=== PATIENT | female | born 1930 | race Caucasian/White ===

== ENCOUNTER 2017-05-13 17:41 | Inpatient (IN) | payer MEDICARE, OTHER ==
[~2017-05-13] VITALS: Ht 157.5 cm; Wt 91.6 kg
--- NOTE | 2017-05-13 19:00 | NUR ---
PATIENT IS AWAKE AND ALERT. SECURITY AT BEDSIDE FOR OBSERVATION
--- NOTE | 2017-05-13 19:20 | NUR ---
report received from day shift nurse Staci RN. pt aaox3, able to speak to in complete and clear sentences in own language - urdu. pt in no acute distress. stated she is a diabetic and felt hypoglycemic. ER MD notified of pt's concern and glucose POCT done, reading of 68. orange juice and apple sauce provided to pt. respirations are even and unlabored, with no signs of hypoglycemia.
[2017-05-13] MEDS ORDERED: FERR220S13 PO (19:45)
[2017-05-13] MEDS ORDERED: OLAN5TAB3 PO (19:45)
[2017-05-13] MEDS ORDERED: BISA10SU12 RC (19:45)
[2017-05-13] MEDS ORDERED: ASPI81TA31 PO (19:45)
[2017-05-13] MEDS ORDERED: MAGN400O6 PO (19:45)
[2017-05-13] MEDS ORDERED: INSU100V7 SQ (19:45)
[2017-05-13] MEDS ORDERED: GLUC1KIT IJ (19:45)
[2017-05-13] MEDS ORDERED: SITA50TA PO (19:45)
[2017-05-13] MEDS ORDERED: ASCO-375 PO (19:45)
[2017-05-13] MEDS ORDERED: HYDR25SU33 RC (19:45)
[2017-05-13] MEDS ORDERED: POLY17PO4 PO (19:45)
[2017-05-13] MEDS ORDERED: ACET325T53 PO (19:45)
[2017-05-13] MEDS ORDERED: METF500T6 PO (19:45)
[2017-05-13] MEDS ORDERED: BLOO-140 IN (19:45)
[2017-05-13] MEDS ORDERED: MELA3TAB PO (19:45)
[2017-05-13] MEDS ORDERED: ACET325C PO (19:45)
[2017-05-13] MEDS ORDERED: HYDR-3326 PO (19:45)
[2017-05-13] MEDS ORDERED: GABA-532 PO (19:45)
[2017-05-13] MEDS ORDERED: METO5TAB2 PO (19:45)
[2017-05-13] MEDS ORDERED: MEMA10TA PO (19:45)
[2017-05-13] MEDS ORDERED: FOLIC ACID PO (19:45)
[2017-05-13 19:59] LABS: CARBON DIOXIDE 32 mmol/L (21-32); CHLORIDE 104 mmol/L (98-107); CREATININE 0.8 mg/dL (0.6-1.3); ETHANOL < 3 MG/DL (0-0); GLUCOSE 72 mg/dL (74-106); POTASSIUM 3.9 mmol/L (3.5-5.1); UREA NITROGEN, BLOOD 12 mg/dL (7-18)
[2017-05-13 20:03] LABS: BASOPHILS % (AUTO) 0.2 % (0.0-2.0); EOSINOPHILS # (AUTO) 0.2 K/uL (0.0-0.7); EOSINOPHILS % (AUTO) 2.9 % (0.0-7.0); HEMATOCRIT 42.7 % (31.2-41.9); HEMOGLOBIN 13.9 g/dL (10.9-14.3); LYMPHOCYTES # (AUTO) 1.7 K/uL (20.0-40.0); LYMPHOCYTES % (AUTO) 29.8 % (20.5-51.5); MEAN CORPUSCULAR HEMOGLOBIN 27.7 uug (24.7-32.8); MEAN CORPUSCULAR HGB CONC 33 g/dL (32.3-35.6); MONOCYTES # (AUTO) 0.4 K/uL (2.0-10.0); MONOCYTES % (AUTO) 6.9 % (0.0-11.0); NEUTROPHILS # (AUTO) 3.5 K/uL (1.8-8.9); NEUTROPHILS % (AUTO) 60.2 % (38.5-71.5); PLATELET COUNT (AUTO) 185 K/uL (179-408); RED BLOOD CELL COUNT(AUTO) 5.02 MIL/uL (3.63-4.92); WHITE BLOOD COUNT (AUTO) 5.9 K/uL (3.8-11.8)
[2017-05-13 20:04] LABS: ALANINE AMINOTRANSFERASE 12 U/L (14-59); ALKALINE PHOSPHATASE 94 U/L (50-136); ASPARTATE AMINOTRANSFERASE 15 U/L (15-37); BILIRUBIN,DIRECT 0.1 mg/dL (0.0-0.2); BILIRUBIN,TOTAL 0.4 mg/dL (0.2-1.0); TOTAL PROTEIN, SERUM 6.5 g/dL (6.4-8.2)
[2017-05-13 20:12] LABS: THYROID STIMULATING HORMONE 3.143 mIU/mL (0.358-3.740)
--- NOTE | 2017-05-13 21:55 | NUR ---
pt taken down to radiology for CT via stretcher. in no acute distress
--- NOTE | 2017-05-13 22:10 | NUR ---
pt returned from CT via stretcher in no acute distress
--- NOTE | 2017-05-13 23:36 | NUR ---
Elijah, Exchange Architect non clinical advisor paged for psych eval .
--- NOTE | 2017-05-14 00:20 | NUR ---
U called for bed, 138A, report given to Pallavi CROWE
[2017-05-14] MEDS ORDERED: ACETAMINOPHEN 325 MG TABLET PO PRN ×3 (01:00→13:45)
[2017-05-14] MEDS ORDERED: MAG HYDROX/AL HYDROX/SIMETH 30 ML LIQUID UDC PO PRN (01:00)
[2017-05-14] MEDS ORDERED: TEMAZEPAM 7.5 MG CAPSULE PO PRN (01:00)
--- NOTE | 2017-05-14 02:00 | NUR ---
AT APPROX O105, ADMITTED 86 YEAR OLD FEMALE FROM [facility] TO [facility] UNDER THE CARE OF DR. PRECIADO. PT IS ON A 5150 HOLD FOR GD. HOLD STARTED ON 05/14/17 AT 0015 AND WILL END ON 05/17/17 AT 0015. PER HOLD, PATIENT GRABBED A NURSE, AT HER SNF, AND SCRATCHED HER BECAUSE SHE DID NOT UNDERSTAND THAT PT WAS FEELING ANXIOUS. PT WAS MEDICALLY CLEARED AT [facility]. AT TIME OF ADMISSION PT WAS NOTED A/O X 2. ABLE TO VERBALIZED THE REASON FOR HER [facility] TO [facility]. PT WAS UNABLE TO SIGN ADMISSION PAPER. SHE STATED THAT SHE DOES NOT KNOW HOW TO READ OR WRITE. SHE IS POLISH SPEAKER ONLY. SKIN NOTED WARM DRY AND INTACT EXCEPT FOR FEW RED SPOTS IN RIGHT HAND POSTERIOR ASPECT. PT STATED THAT SHE IS UNABLE TO WALK. PT IS EDENTULOUS AND SHE DID NOT BRING HER DENTURES. PUREED DIET WAS ORDERED. URINE WAS COLLECTED AND SENT TO LAB FOR URINALYSIS AND C&S. WILL CONTINUE TO MONITOR CLOSELY.
[2017-05-14 02:28] LABS: *BILIRUBIN,URIN NEGATIVE (NEGATIVE); *BLOOD, URINE Trace-intact (NEGATIVE); *CLARITY,URINE SLIGHTLY CLOUDY (CLEAR); *COLOR,URINE LIGHT YELLOW (YELLOW); *KETONES,URINE NEGATIVE (NEGATIVE); *PROTEIN,URINE NEGATIVE (NEGATIVE); *UROBILINOGEN,URINE 0.2 E.U./dl (NORMAL); LEUKOCYTE ESTERASE ,URINE 1+ (NEGATIVE); NITRITE, URINE POSITIVE (NEGATIVE); UGLUCOSE NEGATIVE (NEGATIVE)
[2017-05-14 02:36] LABS: BACTERIA,URINE MANY /HPF (NONE SEEN); SQUAMOUS EPITHELIAL CELL,UR MANY /HPF (NONE SEEN); WBC,URINE 50-80 /HPF (0-3)
[2017-05-14 02:41] LABS: *AMPHETAMINE, URINE NEGATIVE (NEGATIVE); *BARBITURATE, URINE NEGATIVE (NEGATIVE); *CANNABINOID, URINE NEGATIVE (NEGATIVE); *COCCAINE, URINE NEGATIVE (NEGATIVE); *OPIATE, URINE NEGATIVE (NEGATIVE); *PHENCYCLIDINE SCREEN,URINE NEGATIVE (NEGATIVE)
[2017-05-14 05:04] VITALS: BP 129/52
[2017-05-14 08:00] VITALS: BP 115/65
[2017-05-14] MEDS ORDERED: FERROUS SULFATE PO SCH (13:30)
[2017-05-14] MEDS ORDERED: MAGNESIUM HYDROXIDE 30 ML LIQUID UDC PO SCH (13:30)
[2017-05-14] MEDS ORDERED: BISACODYL 10 MG SUPP.RECT RC PRN (13:30)
[2017-05-14] MEDS ORDERED: HYDROCORTISONE RECTAL SUPP 25 MG EACH RC PRN (13:30)
[2017-05-14] MEDS ORDERED: Medication Not On Formulary EA (Acetaminophen 650 MG) PO PRN (13:30)
[2017-05-14] MEDS: SITAGLIPTIN PHOSPHATE 50 MG TABLET PO SCH (13:30)
[2017-05-14] MEDS ORDERED: FOLIC ACID PO SCH (13:30)
[2017-05-14] MEDS ORDERED: HYDROCODONE/APAP 5-325MG TABLET PO PRN (13:30)
[2017-05-14] MEDS: METOCLOPRAMIDE HCL 5 MG TABLET PO SCH ×2 (13:30→17:55)
[2017-05-14] MEDS: GABAPENTIN 100 MG CAPSULE PO SCH ×2 (14:39→17:55)
[2017-05-14] MEDS: ASPIRIN 81 MG TAB.CHEW PO SCH (14:39)
[2017-05-14] MEDS: ASCORBIC ACID 500 MG TABLET PO SCH ×2 (14:39→17:55)
[2017-05-14] MEDS: METFORMIN HCL 500 MG TABLET PO SCH ×2 (14:56→17:55)
[2017-05-14] MEDS: MIRALAX 17 GM POWD.PACK PO SCH ×2 (14:56→17:00)
[2017-05-14 16:00] VITALS: BP 107/42
[2017-05-14] MEDS ORDERED: DEXTROSE 50% 50 ML DISP.SYRIN IV PRN (16:15)
[2017-05-14] MEDS: BLOOD SUGAR DIAGNOSTIC 1 EACH STRIP VI SCH ×2 (16:56→21:25)
[2017-05-14] MEDS: FERROUS SULFATE 300 MG/5 ML LIQUID UDC PO SCH (17:55)
[2017-05-14] MEDS: INSULIN REGULAR, HUMAN 300 UNIT/3 ML VIAL SQ PRN ×2 (18:00→21:35)
[2017-05-14 19:57] VITALS: BP 115/79
[2017-05-14] MEDS ORDERED: INSULIN GLARGINE,HUM 300 UNITS/3 ML CARTRIDGE SQ SCH (21:00)
[2017-05-14] MEDS ORDERED: OLANZAPINE ZYDIS 5 MG TAB.RAPDIS PO SCH (21:00)
[2017-05-14] MEDS: DIVALPROEX SPRINKLE 125 MG CAP.SPRINK PO SCH (21:27)
[2017-05-15] MEDS: BLOOD SUGAR DIAGNOSTIC 1 EACH STRIP VI SCH ×5 (06:30→20:31)
[2017-05-15] MEDS: METOCLOPRAMIDE HCL 5 MG TABLET PO SCH ×4 (06:35→17:22)
--- NOTE | 2017-05-15 07:04 | NUR ---
Patient blood sugar at 0630 is 37. Alert and grabbing water. Refused to let go. Patient given orange juice 2 cups. After 15 minutes blood sugar is 89. Cooperative with care. AM care completed and resting comfortably.
[2017-05-15 07:30] VITALS: BP 111/58
[2017-05-15] MEDS: FERROUS SULFATE 300 MG/5 ML LIQUID UDC PO SCH ×2 (09:27→17:23)
[2017-05-15] MEDS: ASPIRIN 81 MG TAB.CHEW PO SCH (09:27)
[2017-05-15] MEDS: FOLIC ACID 1 MG TABLET PO SCH (09:27)
[2017-05-15] MEDS: SITAGLIPTIN PHOSPHATE 50 MG TABLET PO SCH (09:28)
[2017-05-15] MEDS: DIVALPROEX SPRINKLE 125 MG CAP.SPRINK PO SCH ×2 (09:28→20:02)
[2017-05-15] MEDS: MIRALAX 17 GM POWD.PACK PO SCH ×2 (09:28→17:23)
[2017-05-15] MEDS: GABAPENTIN 100 MG CAPSULE PO SCH ×2 (09:28→17:22)
[2017-05-15] MEDS: ASCORBIC ACID 500 MG TABLET PO SCH ×2 (09:28→17:22)
--- NOTE | 2017-05-15 13:52 | NUR ---
Firearms Report: BLAINE completed and submitted [facility] Firearms Report on 05/15/17.
[2017-05-15] MEDS: CEPHALEXIN MONOHYDRATE 500 MG CAPSULE PO SCH ×2 (14:00→21:30)
[2017-05-15 15:00] VITALS: BP 111/37
[2017-05-15] MEDS: METFORMIN HCL 500 MG TABLET PO SCH (17:22)
[2017-05-15] MEDS: INSULIN REGULAR, HUMAN 300 UNIT/3 ML VIAL SQ PRN ×2 (17:26→20:41)
--- NOTE | 2017-05-15 18:14 | NUR ---
Gps/[employer]- Noted patient more responsive to male staff. refusing am. routine meds. was was reoffered couple of times, needed prompting, was irritable with female staff when administering her mediciatrions. Fluids offered and encouraged. Reviewed safety.
[2017-05-15 20:01] VITALS: BP 100/62
[2017-05-15] MEDS: OLANZAPINE ZYDIS 5 MG TAB.RAPDIS PO SCH (20:02)
[2017-05-16] MEDS: METOCLOPRAMIDE HCL 5 MG TABLET PO SCH ×4 (00:01→16:57)
[2017-05-16] MEDS: CEPHALEXIN MONOHYDRATE 500 MG CAPSULE PO SCH ×3 (05:31→21:02)
[2017-05-16] MEDS: BLOOD SUGAR DIAGNOSTIC 1 EACH STRIP VI SCH ×4 (06:16→20:01)
--- NOTE | 2017-05-16 06:24 | NUR ---
GPS: REMAIN UNCOOPERATIVE WITH CARE. PATIENT ATTEMPTED TO HIT STAFF WHILE PROVIDING ADL'S. COMPLIANT WITH WITH MEDICATION. BLOOD SUGAR 79 MG/DL THIS MORNING. SLEPT 7 HRS THROUGH THE NIGHT.
[2017-05-16 07:30] VITALS: BP 100/50
[2017-05-16] MEDS: ASCORBIC ACID 500 MG TABLET PO SCH ×2 (08:23→16:57)
[2017-05-16] MEDS: DIVALPROEX SPRINKLE 125 MG CAP.SPRINK PO SCH ×2 (08:23→20:01)
[2017-05-16] MEDS: METFORMIN HCL 500 MG TABLET PO SCH ×2 (08:23→16:57)
[2017-05-16] MEDS: FOLIC ACID 1 MG TABLET PO SCH (08:23)
[2017-05-16] MEDS: ASPIRIN 81 MG TAB.CHEW PO SCH (08:24)
[2017-05-16] MEDS: GABAPENTIN 100 MG CAPSULE PO SCH ×2 (08:24→16:57)
[2017-05-16] MEDS: MIRALAX 17 GM POWD.PACK PO SCH ×2 (08:24→16:57)
[2017-05-16] MEDS: SITAGLIPTIN PHOSPHATE 50 MG TABLET PO SCH (08:24)
[2017-05-16] MEDS: FERROUS SULFATE 300 MG/5 ML LIQUID UDC PO SCH ×2 (08:25→16:57)
--- NOTE | 2017-05-16 09:02 | NUR ---
Initial Discharge Instructions: Pt currently lives at [facility] [[address], [place] [address]; [phone]]. Spoke with pt's son, Eddie ([phone]) who stated the family would like the pt to return there when ready for discharge. Spoke with Silvina at the facility who stated the patient may return there when ready. SW will continue to collaborate with the pt, family, and MD regarding appropriate discharge plans. SW will form a safe and proper discharge.
[2017-05-16] MEDS: INSULIN GLARGINE,HUM 300 UNITS/3 ML CARTRIDGE SQ SCH (09:19)
[2017-05-16] MEDS: INSULIN REGULAR, HUMAN 300 UNIT/3 ML VIAL SQ PRN ×3 (11:37→20:03)
[2017-05-16 15:00] VITALS: BP 117/57
[2017-05-16] MEDS: OLANZAPINE ZYDIS 5 MG TAB.RAPDIS PO SCH (20:01)
[2017-05-16 20:15] VITALS: BP 114/56
[2017-05-16] MEDS: MAGNESIUM HYDROXIDE 30 ML LIQUID UDC PO PRN (22:45)
[2017-05-17] MEDS: METOCLOPRAMIDE HCL 5 MG TABLET PO SCH ×5 (01:25→23:00)
[2017-05-17] MEDS: LORAZEPAM 0.5 MG TABLET PO PRN (01:25)
--- NOTE | 2017-05-17 01:26 | NUR ---
scheduled Reglan at 0000 given late due to pT sleeping. pT awoke at 0120 anxious and nauseous, Ativan 0.5 and Reglan administered at that time.
[2017-05-17] MEDS: CEPHALEXIN MONOHYDRATE 500 MG CAPSULE PO SCH ×3 (05:51→21:24)
[2017-05-17] MEDS: BLOOD SUGAR DIAGNOSTIC 1 EACH STRIP VI SCH ×4 (06:35→20:01)
[2017-05-17 07:30] VITALS: BP 121/50
[2017-05-17] MEDS: FERROUS SULFATE 300 MG/5 ML LIQUID UDC PO SCH ×2 (08:10→16:54)
[2017-05-17] MEDS: SITAGLIPTIN PHOSPHATE 50 MG TABLET PO SCH (08:10)
[2017-05-17] MEDS: DIVALPROEX SPRINKLE 125 MG CAP.SPRINK PO SCH ×2 (08:10→20:03)
[2017-05-17] MEDS: FOLIC ACID 1 MG TABLET PO SCH (08:10)
[2017-05-17] MEDS: ASPIRIN 81 MG TAB.CHEW PO SCH (08:10)
[2017-05-17] MEDS: METFORMIN HCL 500 MG TABLET PO SCH ×2 (08:10→16:54)
[2017-05-17] MEDS: ASCORBIC ACID 500 MG TABLET PO SCH ×2 (08:10→16:54)
[2017-05-17] MEDS: GABAPENTIN 100 MG CAPSULE PO SCH ×2 (08:10→16:54)
[2017-05-17] MEDS: MIRALAX 17 GM POWD.PACK PO SCH ×2 (08:14→17:00)
[2017-05-17] MEDS: INSULIN GLARGINE,HUM 300 UNITS/3 ML CARTRIDGE SQ SCH (08:17)
--- NOTE | 2017-05-17 08:41 | NUR ---
Gps/Car Rental Service Attendant- Fed self ind. after set up. Compliant with her routine am.medications, min.prompting.Had been redirectable this am, followed simple command.
[2017-05-17] MEDS: INSULIN REGULAR, HUMAN 300 UNIT/3 ML VIAL SQ PRN ×3 (12:01→20:02)
[2017-05-17] MEDS ORDERED: BISACODYL 10 MG SUPP.RECT RC PRN (12:30)
--- NOTE | 2017-05-17 12:45 | NUR ---
Gps/Rough Planer Tender- Dr Vera was in to see patient, informed patient has been on miralax for few days, but still has no BM, bowel sounds active/present per MD, orders received to give lactulose unit dose till patient have BM, pt. was informed. Adequate fluid intake. Patient obese large abdomen .
[2017-05-17] MEDS: LACTULOSE 20 G/30 ML LIQUID UDC PO SCH ×6 (12:59→22:56)
[2017-05-17 15:11] VITALS: BP 109/49
--- NOTE | 2017-05-17 17:17 | NUR ---
Gps/Stabber-Family in to visit, adequate informations provided as requested re progress in [place]. Patient had no bowel movement, continue to monitor. Adequate fluid intake.
[2017-05-17] MEDS: OLANZAPINE ZYDIS 5 MG TAB.RAPDIS PO SCH (20:04)
[2017-05-17 20:33] VITALS: BP 99/53
--- NOTE | 2017-05-17 23:03 | NUR ---
Pt HAD 2 LARGE, LOOSE BMs, LACTULOSE EFFECTIVE. SKIN CARE PROVIDED.
[2017-05-18] MEDS: LACTULOSE 20 G/30 ML LIQUID UDC PO SCH (00:49)
[2017-05-18] MEDS: METOCLOPRAMIDE HCL 5 MG TABLET PO SCH ×3 (06:08→22:47)
[2017-05-18] MEDS: CEPHALEXIN MONOHYDRATE 500 MG CAPSULE PO SCH ×3 (06:09→22:46)
[2017-05-18] MEDS: BLOOD SUGAR DIAGNOSTIC 1 EACH STRIP VI SCH ×4 (07:07→21:20)
[2017-05-18 07:30] VITALS: BP 113/50
[2017-05-18] MEDS: INSULIN REGULAR, HUMAN 300 UNIT/3 ML VIAL SQ PRN ×4 (07:55→21:26)
[2017-05-18] MEDS: INSULIN GLARGINE,HUM 300 UNITS/3 ML CARTRIDGE SQ SCH (07:59)
[2017-05-18] MEDS: GABAPENTIN 100 MG CAPSULE PO SCH ×2 (08:15→16:21)
[2017-05-18] MEDS: DIVALPROEX SPRINKLE 125 MG CAP.SPRINK PO SCH ×3 (08:15→21:20)
[2017-05-18] MEDS: MIRALAX 17 GM POWD.PACK PO SCH ×2 (08:15→16:21)
[2017-05-18] MEDS: FOLIC ACID 1 MG TABLET PO SCH (08:15)
[2017-05-18] MEDS: ASPIRIN 81 MG TAB.CHEW PO SCH (08:15)
[2017-05-18] MEDS: ASCORBIC ACID 500 MG TABLET PO SCH ×2 (08:15→16:21)
[2017-05-18] MEDS: SITAGLIPTIN PHOSPHATE 50 MG TABLET PO SCH (08:15)
[2017-05-18] MEDS: METFORMIN HCL 500 MG TABLET PO SCH ×2 (08:15→17:01)
[2017-05-18] MEDS: FERROUS SULFATE 300 MG/5 ML LIQUID UDC PO SCH ×2 (08:21→16:20)
[2017-05-18] MEDS: HYDROCODONE/APAP 5-325MG TABLET PO PRN (12:37)
[2017-05-18 16:00] VITALS: BP 111/50
--- NOTE | 2017-05-18 17:09 | NUR ---
Gps/Answering Service Agent- Family from [facility] in to visit, not interactive with family . Per grand daughter she recognized them . Repostioned for comfort, keeing skin clean and dry.
[2017-05-18 19:56] VITALS: BP 110/53
[2017-05-18] MEDS: OLANZAPINE ZYDIS 5 MG TAB.RAPDIS PO SCH (21:20)
--- NOTE | 2017-05-18 23:06 | NUR ---
PATIENT RECEIVED IN BED AWAKE. PATIENT ALERT/ORIENTED X2. PATIENT REQUIRES PROMPTING WHEN TAKING MEDICATION IS COMPLAINT. ACCUCHECK 236 MG/DL WITH INSULIN GIVEN PER SLIDING SCALE PER ORDER. PATIENT IS EASILY IRRITABLE, LABILE WITH STAFF, AND EASILY AGITATED IS REDIRECTABLE. BED IN LOWEST POSITION, BED LOCKED, AND BED ALARM ON WHILE IN BED.
[2017-05-19] MEDS: CEPHALEXIN MONOHYDRATE 500 MG CAPSULE PO SCH ×3 (06:30→21:04)
[2017-05-19] MEDS: METOCLOPRAMIDE HCL 5 MG TABLET PO SCH ×3 (06:30→21:04)
[2017-05-19] MEDS: BLOOD SUGAR DIAGNOSTIC 1 EACH STRIP VI SCH ×4 (06:38→20:19)
[2017-05-19 07:30] VITALS: BP 103/56
[2017-05-19] MEDS: SITAGLIPTIN PHOSPHATE 50 MG TABLET PO SCH (08:52)
[2017-05-19] MEDS: ASPIRIN 81 MG TAB.CHEW PO SCH (08:52)
[2017-05-19] MEDS: GABAPENTIN 100 MG CAPSULE PO SCH ×2 (08:52→16:21)
[2017-05-19] MEDS: ASCORBIC ACID 500 MG TABLET PO SCH ×2 (08:52→16:20)
[2017-05-19] MEDS: FOLIC ACID 1 MG TABLET PO SCH (08:52)
[2017-05-19] MEDS: METFORMIN HCL 500 MG TABLET PO SCH ×2 (08:52→18:07)
[2017-05-19] MEDS: DIVALPROEX SPRINKLE 125 MG CAP.SPRINK PO SCH ×3 (08:52→21:04)
[2017-05-19] MEDS: LORAZEPAM 0.5 MG TABLET PO PRN ×2 (08:53→12:30)
[2017-05-19] MEDS: MIRALAX 17 GM POWD.PACK PO SCH ×2 (08:54→16:20)
[2017-05-19] MEDS: FERROUS SULFATE 300 MG/5 ML LIQUID UDC PO SCH ×2 (08:54→16:36)
[2017-05-19] MEDS: INSULIN GLARGINE,HUM 300 UNITS/3 ML CARTRIDGE SQ SCH (08:55)
--- NOTE | 2017-05-19 10:06 | NUR ---
GPS: Nursing Notes: C/O Left Side Discomfort: Staff assisted patient with transfer after she was shower, c/o discomfort of her left side after we finished with transfer, stating "You hurt me..", staff assisted by MAHENDRA Vang, Jose Miguel RN, and Catie CROWE, staff continue to groom the patient, continue to monitor patient, continue with treatment plan.
[2017-05-19] MEDS: INSULIN REGULAR, HUMAN 300 UNIT/3 ML VIAL SQ PRN ×3 (11:43→20:20)
[2017-05-19] MEDS: HYDROCODONE/APAP 5-325MG TABLET PO PRN (16:21)
--- NOTE | 2017-05-19 16:35 | NUR ---
GPS: Nursing Notes: C/O of Left Side Pain: Family members spoke with staff that patient is complaining of pain of her left side, staff medicated patient with [place] per MD order PRN, explained to family members what happened and inform charge nurse and ordered: X-ray of the left ribs. But at 16:00 hrs. V/S: 122/49, 84, 18, 96%, 0/10, continue to monitor patient, continue with treatment plan.
--- NOTE | 2017-05-19 19:30 | NUR ---
DAY SHIFT PLASTIC WELDING MACHINE OPERATOR REPORTED THAT Pt WAS C/O SEVERE (L) RIB PAIN AND XR WAS ORDERED AND PERFORMED, RESULTS UNAVAILABLE AT THE TIME OF REPORT. XR RESULT WAS POSTED TO ELECTRONIC CHART AT 191, SHOWING FX TO (L) ANTERIOR [address] DR DSOUZA NOTIFIED, NO NEW ORDERS AT THIS TIME. BINGO MANAGER HERBIE NOTIFIED. Pt's SON JOI INFORMED OF Pt's CONDITION, AND HE DECLINED TO SPEAK TO THE OUTSIDE SALES ENGINEER. Pt CALM AND RESTING AT THIS TIME.
[2017-05-19 19:35] VITALS: BP 113/40
[2017-05-19] MEDS: OLANZAPINE ZYDIS 5 MG TAB.RAPDIS PO SCH (20:21)
[2017-05-20] MEDS: CEPHALEXIN MONOHYDRATE 500 MG CAPSULE PO SCH ×3 (05:39→21:40)
[2017-05-20] MEDS: METOCLOPRAMIDE HCL 5 MG TABLET PO SCH ×3 (05:39→21:40)
[2017-05-20] MEDS: BLOOD SUGAR DIAGNOSTIC 1 EACH STRIP VI SCH ×4 (06:31→21:40)
[2017-05-20 07:30] VITALS: BP 125/47
[2017-05-20] MEDS: LORAZEPAM 0.5 MG TABLET PO PRN (08:55)
[2017-05-20] MEDS: DIVALPROEX SPRINKLE 125 MG CAP.SPRINK PO SCH ×3 (08:56→21:40)
[2017-05-20] MEDS: SITAGLIPTIN PHOSPHATE 50 MG TABLET PO SCH (08:56)
[2017-05-20] MEDS: ASCORBIC ACID 500 MG TABLET PO SCH ×2 (08:56→16:34)
[2017-05-20] MEDS: METFORMIN HCL 500 MG TABLET PO SCH ×2 (08:56→17:44)
[2017-05-20] MEDS: ASPIRIN 81 MG TAB.CHEW PO SCH (08:56)
[2017-05-20] MEDS: FOLIC ACID 1 MG TABLET PO SCH (08:56)
[2017-05-20] MEDS: GABAPENTIN 100 MG CAPSULE PO SCH ×2 (08:56→16:34)
[2017-05-20] MEDS: FERROUS SULFATE 300 MG/5 ML LIQUID UDC PO SCH ×2 (08:56→16:34)
[2017-05-20] MEDS: MIRALAX 17 GM POWD.PACK PO SCH ×2 (08:56→16:34)
[2017-05-20] MEDS: INSULIN GLARGINE,HUM 300 UNITS/3 ML CARTRIDGE SQ SCH (08:59)
[2017-05-20] MEDS: INSULIN REGULAR, HUMAN 300 UNIT/3 ML VIAL SQ PRN ×3 (11:54→21:45)
[2017-05-20 15:34] VITALS: BP 117/42
[2017-05-20] MEDS: HYDROCODONE/APAP 5-325MG TABLET PO PRN (16:37)
[2017-05-20 19:57] VITALS: BP 107/40
[2017-05-20] MEDS: OLANZAPINE ZYDIS 5 MG TAB.RAPDIS PO SCH (21:40)
--- NOTE | 2017-05-20 22:00 | NUR ---
RECEIVED PATIENT IN HER ROOM IN BED. SHE WAS NOTED AWAKE A/O X 2 AND ABLE TO MAKE HER NEEDS KNOW. SHE DENIED PAIN OR DISCOMFORT AT THIS TIME. INCONTINENT OF BOWEL AND BLADER AT THIS TIME. SHE REQUIRES ASSISTANCE WITH TRANSFER AND AMBULATION. V/S STABLE. BS 244 GIVEN 4 UNITS INSULIN. SHE WAS NOTED WITH DEPRESSED MOOD, BLUNTED AFFECT, NO AGGRESSIVE BX NOTED AT THIS TIME. COMPLIANT WITH MEDICATION REGIMENT. SNACKS WERE GIVEN. TURNED AND REPOSITION Q2HRS. SAFETY EMPHASIS. BED ALARM ON. WILL CONTINUE TO MONITOR.
[2017-05-21] MEDS: MAGNESIUM HYDROXIDE 30 ML LIQUID UDC PO PRN (02:58)
[2017-05-21] MEDS: HYDROCODONE/APAP 5-325MG TABLET PO PRN ×3 (02:59→21:24)
[2017-05-21] MEDS: METOCLOPRAMIDE HCL 5 MG TABLET PO SCH ×3 (06:34→21:23)
[2017-05-21] MEDS: CEPHALEXIN MONOHYDRATE 500 MG CAPSULE PO SCH ×2 (06:34→13:05)
[2017-05-21] MEDS: BLOOD SUGAR DIAGNOSTIC 1 EACH STRIP VI SCH ×4 (06:34→21:23)
[2017-05-21 07:30] VITALS: BP 103/39
--- NOTE | 2017-05-21 07:47 | NUR ---
PATIENT RECEIVED IN BED AWAKE. PATIENT ALERT/ORIENTED X2. PATIENT REQUIRES PROMPTING WHEN TAKING MEDICATION IS COMPLAINT. PATIENT IS EASILY IRRITABLE, LABILE WITH STAFF, AND EASILY AGITATED , BED IN LOWEST POSITION, BED LOCKED, AND BED ALARM ON
[2017-05-21] MEDS: INSULIN GLARGINE,HUM 300 UNITS/3 ML CARTRIDGE SQ SCH (08:00)
[2017-05-21] MEDS: ASPIRIN 81 MG TAB.CHEW PO SCH (08:02)
[2017-05-21] MEDS: DIVALPROEX SPRINKLE 125 MG CAP.SPRINK PO SCH ×3 (08:02→21:23)
[2017-05-21] MEDS: ASCORBIC ACID 500 MG TABLET PO SCH ×2 (08:02→16:04)
[2017-05-21] MEDS: SITAGLIPTIN PHOSPHATE 50 MG TABLET PO SCH (08:02)
[2017-05-21] MEDS: FOLIC ACID 1 MG TABLET PO SCH (08:02)
[2017-05-21] MEDS: METFORMIN HCL 500 MG TABLET PO SCH ×2 (08:02→17:16)
[2017-05-21] MEDS: GABAPENTIN 100 MG CAPSULE PO SCH ×2 (08:02→16:04)
[2017-05-21] MEDS: FERROUS SULFATE 300 MG/5 ML LIQUID UDC PO SCH ×2 (08:03→16:04)
[2017-05-21] MEDS: MIRALAX 17 GM POWD.PACK PO SCH ×2 (08:03→16:04)
[2017-05-21 08:07] LABS: BASOPHILS % (AUTO) 0.4 % (0.0-2.0); EOSINOPHILS # (AUTO) 0.3 K/uL (0.0-0.7); EOSINOPHILS % (AUTO) 3.9 % (0.0-7.0); HEMATOCRIT 41.4 % (31.2-41.9); HEMOGLOBIN 13.5 g/dL (10.9-14.3); LYMPHOCYTES # (AUTO) 1.7 K/uL (20.0-40.0); LYMPHOCYTES % (AUTO) 26.3 % (20.5-51.5); MEAN CORPUSCULAR HEMOGLOBIN 27.9 uug (24.7-32.8); MEAN CORPUSCULAR HGB CONC 33 g/dL (32.3-35.6); MEAN CORPUSCULAR VOLUME 85.4 fL (75.5-95.3); MONOCYTES # (AUTO) 0.6 K/uL (2.0-10.0); MONOCYTES % (AUTO) 9.6 % (0.0-11.0); NEUTROPHILS # (AUTO) 3.9 K/uL (1.8-8.9); NEUTROPHILS % (AUTO) 59.8 % (38.5-71.5); PLATELET COUNT (AUTO) 218 K/uL (179-408); RED BLOOD CELL COUNT(AUTO) 4.84 MIL/uL (3.63-4.92); WHITE BLOOD COUNT (AUTO) 6.6 K/uL (3.8-11.8)
[2017-05-21 08:38] LABS: ALANINE AMINOTRANSFERASE 11 U/L (14-59); ALKALINE PHOSPHATASE 90 U/L (50-136); ASPARTATE AMINOTRANSFERASE 15 U/L (15-37); BILIRUBIN,TOTAL 0.5 mg/dL (0.2-1.0); CARBON DIOXIDE 34 mmol/L (21-32); CHLORIDE 102 mmol/L (98-107); CREATININE 0.7 mg/dL (0.6-1.3); GLUCOSE 98 mg/dL (74-106); MAGNESIUM 2.3 mg/dL (1.8-2.4); PHOSPHOROUS 3.2 mg/dL (2.5-4.9); POTASSIUM 4.2 mmol/L (3.5-5.1); TOTAL PROTEIN, SERUM 6.2 g/dL (6.4-8.2); UREA NITROGEN, BLOOD 20 mg/dL (7-18)
[2017-05-21] MEDS: INSULIN REGULAR, HUMAN 300 UNIT/3 ML VIAL SQ PRN ×3 (11:23→21:25)
--- NOTE | 2017-05-21 12:00 | NUR ---
- Family visit, not interactive with family . Per grand daughter she recognized them . Repositioned for comfort, keeping skin clean and dry.
[2017-05-21 16:03] VITALS: BP 117/52
[2017-05-21 20:13] VITALS: BP 125/59
[2017-05-21] MEDS: OLANZAPINE ZYDIS 5 MG TAB.RAPDIS PO SCH (21:23)
--- NOTE | 2017-05-21 21:30 | NUR ---
RECEIVED PATIENT IN HER ROOM IN BED. SHE WAS A/O X 2. UABLE TO MAKE HER NEEDS KNOWN. PATIENT IS COMPLIANT WITH MEDICATION REGIMENT. NO BEHAVIORAL PROBLEMS NOTED AT THIS TIME. NO COMBATIVE/AGGRESSIVE BX NOTED. PATIENT C/O LEFT SIDED RIB PAIN 7/10 IN THE PAIN INTENSITY SCALE. NORCO 5-325MG GIVEN AT 2124. WILL CONTINUE TO MONITOR.
[2017-05-22] MEDS: METOCLOPRAMIDE HCL 5 MG TABLET PO SCH (06:22)
[2017-05-22] MEDS: BLOOD SUGAR DIAGNOSTIC 1 EACH STRIP VI SCH ×2 (06:38→10:50)
[2017-05-22 07:30] VITALS: BP 132/50
--- NOTE | 2017-05-22 07:30 | NUR ---
PATIENT RECEIVED IN BED AWAKE. PATIENT ALERT/ORIENTED X2. TAKING MEDICATION IS COMPLAINT. PATIENT IS EASILY IRRITABLE, LABILE WITH STAFF, AND EASILY AGITATED , BED IN LOWEST POSITION, BED LOCKED, AND BED ALARM ON
[2017-05-22] MEDS: INSULIN REGULAR, HUMAN 300 UNIT/3 ML VIAL SQ PRN ×2 (07:39→12:03)
[2017-05-22] MEDS: INSULIN GLARGINE,HUM 300 UNITS/3 ML CARTRIDGE SQ SCH (08:02)
[2017-05-22] MEDS: METFORMIN HCL 500 MG TABLET PO SCH (08:03)
[2017-05-22] MEDS: FERROUS SULFATE 300 MG/5 ML LIQUID UDC PO SCH (08:03)
[2017-05-22] MEDS: SITAGLIPTIN PHOSPHATE 50 MG TABLET PO SCH (08:03)
[2017-05-22] MEDS: GABAPENTIN 100 MG CAPSULE PO SCH (08:03)
[2017-05-22] MEDS: FOLIC ACID 1 MG TABLET PO SCH (08:03)
[2017-05-22] MEDS: ASCORBIC ACID 500 MG TABLET PO SCH (08:03)
[2017-05-22] MEDS: ASPIRIN 81 MG TAB.CHEW PO SCH (08:03)
[2017-05-22] MEDS: MIRALAX 17 GM POWD.PACK PO SCH (08:03)
[2017-05-22] MEDS: DIVALPROEX SPRINKLE 125 MG CAP.SPRINK PO SCH ×2 (08:03→12:02)
--- NOTE | 2017-05-22 08:41 | NUR ---
Discharge Note: Patient will be discharged to [facility] [[address], [place] [address]; [phone]] via private transportation at 1pm. Spoke with Silvina at the facility who states they are able to provide transportation and are ready to accept the patient today. Spoke with patients son, Eddie ([phone]) who is aware and agreeable with discharge plans. Patient will follow-up at the facility with Dr. Mckenna (Butter Liquefier) and Dr. Bates (Psychiatrist).
--- NOTE | 2017-05-22 13:07 | NUR ---
D/C ORDERS RECEIVED NOTED AND CARRIED OUT,RN REPORT GIVEN OVER SKILLED NURSING,PT LEFT THE FACILITY VIA AMBULANCES IN STABLE CONDITION.
== END 2017-05-22 13:30 | DRG 885 ==
LOC: ER 17:42 → GPS 05-14 00:39
PROVIDERS: ADMIT Psychiatry & Neurology Psychiatry; ATTEND Internal Medicine
DX: F23 Brief psychotic disorder (principal); E11.42 Type 2 diabetes mellitus with diabetic polyneuropathy; F03.91 Unspecified dementia, unspecified severity, with behavioral disturbance; N39.0 Urinary tract infection, site not specified; S22.32XA Fracture of one rib, left side, initial encounter for closed fracture; Z93.1 Gastrostomy status; W18.39XA Other fall on same level, initial encounter; E78.5 Hyperlipidemia, unspecified; K21.9 Gastro-esophageal reflux disease without esophagitis; Z79.82 Long term (current) use of aspirin; Z79.4 Long term (current) use of insulin; Z79.899 Other long term (current) drug therapy; M79.605 Pain in left leg; Y93.E1 Activity, personal bathing and showering; Y92.121 Bathroom in nursing home as the place of occurrence of the external cause; D63.8 Anemia in other chronic diseases classified elsewhere; R13.10 Dysphagia, unspecified; M17.12 Unilateral primary osteoarthritis, left knee; B96.20 Unspecified Escherichia coli [E. coli] as the cause of diseases classified elsewhere; K59.00 Constipation, unspecified; I10 Essential (primary) hypertension; I25.10 Atherosclerotic heart disease of native coronary artery without angina pectoris; I67.2 Cerebral atherosclerosis; I70.0 Atherosclerosis of aorta; Z86.73 Personal history of transient ischemic attack (TIA), and cerebral infarction without residual deficits
CPT/HCPCS: 36415; 70450; 71045; 71101; 72125; 73502; 80307; 82306; 83735; 84100; 84443; 85025; 87077; 87086; 93005; A4663; G0480; G0480-TC; J1815; J8597